=== PATIENT | female | born 1990 | race Caucasian/White ===

== ENCOUNTER 2021-01-03 12:49 | Observation (INO) | payer OTHER ==
[~2021-01-03] VITALS: Ht 154.9 cm; Wt 59.9 kg
[2021-01-03 13:55] VITALS: BP 121/59
== END 2021-01-03 16:15 | disposition home or self-care (01) ==
LOC: MLD 12:49
PROVIDERS: ADMIT Obstetrics & Gynecology; ATTEND Obstetrics & Gynecology
DX: O26.892 Other specified pregnancy related conditions, second trimester (principal); R10.9 Unspecified abdominal pain; Z3A.24 24 weeks gestation of pregnancy
CPT/HCPCS: 59025; 76805; G0378; 81000